=== PATIENT | male | born 1965 | race African-American/Black ===

== ENCOUNTER 2017-04-26 06:42 | Day surgery (SDC) | payer OTHER ==
[2017-04-26] VITALS (12 sets, daily range): BP systolic 135–202; BP diastolic 72–114; PULSE 82–92; RESP 13–25; Ht 188 cm; Wt 101.0 kg
[~2017-04-26] VITALS: Ht 188 cm; Wt 101.0 kg
[~2017-04-26 06:42] MED LIST: CEFAZOLIN 2 GM/50 ML (PMX) 50 ML IVPB SCH; SOD CHLORIDE 0.9% 1,000 ML IV SCH
[2017-04-26] MEDS ORDERED: MTF1000T PO (07:28)
--- NOTE | 2017-04-26 07:31 | RADRPT ---
PROCEDURE: XR Chest. CLINICAL INDICATION: Preoperative TECHNIQUE: Single frontal view of the chest was obtained COMPARISON: None FINDINGS: The heart and mediastinum are within normal limits. The lungs are clear. There is no pleural effusion or pneumothorax. RPTAT: AA IMPRESSION: No acute disease. .Amador Wagner MD, Date Time Electronically viewed and signed by .Amador Wagner MD, on 04/26/2017 07:31 .S/
[2017-04-26] MEDS ORDERED: METF500T4 PO (07:52)
[2017-04-26] MEDS ORDERED: LANT3I SC (07:52)
[2017-04-26 07:59] LABS: BASOPHILS % 0.4 % (0.0-2.0); EOSINOPHILS # 0.1 10^3/ul (0.0-0.5); EOSINOPHILS % 2.2 % (0.0-7.0); HEMATOCRIT 43.8 % (42.0-52.0); LYMPHOCYTES # 2.2 10^3/ul (0.8-2.9); LYMPHOCYTES % 40.2 % (15.0-51.0); MEAN CORPUSCULAR HEMOGLOBIN 30.2 pg (29.0-33.0); MEAN CORPUSCULAR HGB CONC 34.2 g/dl (32.0-37.0); MEAN CORPUSCULAR VOLUME 88.3 fl (82.0-101.0); MEAN PLATELET VOLUME 11.8 fl (7.4-10.4); MONOCYTE # 0.5 10^3/ul (0.3-0.9); MONOCYTES % 8.9 % (0.0-11.0); NEUTROPHIL # 2.6 10^3/ul (1.6-7.5); NEUTROPHILS % 48.1 % (39.0-77.0); PLATELET COUNT 135 10^3/UL (140-415); POSITIVE DIFF @See below; RED BLOOD COUNT 4.96 10^6/ul (4.70-6.10); RED CELL DISTRIBUTION WIDTH 12.3 % (11.5-14.5); WHITE BLOOD COUNT 5.4 10^3/ul (4.8-10.8)
[2017-04-26 08:16] LABS: INR 0.96; PARTIAL THROMBOPLASTIN TIME 26.6 Sec (25.0-35.0); PROTIME 12.8 Sec (12.2-14.2)
[2017-04-26 08:20] LABS: ALBUMIN 4.3 g/dl (3.3-4.9); ALBUMIN/GLOBULIN RATIO 1.38; BILIRUBIN,INDIRECT 0.6 mg/dl (0-1.1); BILIRUBIN,TOTAL 0.6 mg/dl (0.2-1.3); TOTAL PROTEIN 7.4 g/dl (6.1-8.1)
[2017-04-26 08:28] LABS: CALCIUM 9.5 mg/dl (8.4-10.2); CREATININE 0.71 mg/dl (0.61-1.24); POTASSIUM 4.1 mmol/L (3.5-5.1)
[2017-04-26] MEDS ORDERED: INSULIN ASPART [NOVOLOG] 3 ML PEN SC ONE (08:30)
[2017-04-26 08:48] LABS: BASOPHILS % (M) 1 % (0-2); EOSINOPHILS % (M) 2 % (0-7); ERYTHROBLAST% (NRBC) (M) 1 % (0-0); METAMYELOCYTES %M 1 % (0-0); MONOCYTES % (M) 3 % (0-11); PLATELET ESTIMATE NORMAL; REACTIVE LYMPHOCYTES% (M) 1 % (0-0)
[2017-04-26] MEDS ORDERED: BUPIVACAINE 0.25% (MPF) 10 ML 10 ML VIAL ONE (10:45)
[2017-04-26] MEDS ORDERED: GLYCOPYRROLATE 1 MG INJ ONE (10:58)
[2017-04-26] MEDS ORDERED: NEOSTIGMINE 3 MG/3 ML SYRINGE ONE (10:58)
[2017-04-26] MEDS ORDERED: PROPOFOL 20 ML ONE (10:58)
[2017-04-26] MEDS ORDERED: LIDOCAINE 2% (SDV) 5 ML INJ ONE (10:58)
[2017-04-26] MEDS ORDERED: SUCCINYLCHOLINE CHLORIDE 100 MG/5 ML SYG IV ONE (10:58)
[2017-04-26] MEDS ORDERED: ROCURONIUM 50 MG INJ ONE (10:58)
[2017-04-26] MEDS ORDERED: CEFAZOLIN 1 GM INJ ONE (11:17)
[2017-04-26] MEDS ORDERED: BACITRACIN 0.9 GM OINT ONE (11:25)
[2017-04-26] MEDS ORDERED: HYDROCODONE/APAP (5/325) TAB PO ONE (11:30)
--- NOTE | 2017-04-26 11:31 | OPR ---
Date/Time of Note Date/Time of Note DATE: 04/26/17 TIME: 11:28 Operative Report Procedure Date: Apr 26, 2017 Preoperative Diagnosis 1. right upper labium madi mass 2 cm mass 2 cm incision 2. localize adjacent labium madi flaps 2 sq cm defect 3. therapeutic injection of subcutaneous local anesthesia Postoperative Diagnosis same Surgeon see signature line Micro Lab Analyst none Anesthesia Type: general Estimated Blood Loss: 0 - 10 ml's Transfusion none Specimen right upper labium madi mass Grafts/Implants none Complications none Indications This is a 52-year-old male with right upper labium orris mass. He requests surgical excision. Risks alternatives benefits and percent were discussed the patient. Potential complications including but not limited to bleeding infection lip scarring and contracture and deformity and possible need for reoperation were discussed the patient. Patient expressed understanding consents to the operation. Procedure Description Patient is taken to the OR and prepped and draped in usual sterile fashion. Surgical timeout was performed. IV antibiotics given. Elliptical incision is made over the right upper labium auris mass with a 15 blade dissection Carrs carried onto the mass and circumferentially excised. There is good hemostasis. The mass excision did not violate the vermilion border. This remained intact and did not creating deformities. Due to the large tissue defect labial flaps were created and advanced. This was closed in a localized adjacent tissue transfer with these of skin flaps with interrupted 3-0 Vicryl and interrupted 3- 0 nylon. Therapeutic subcutaneous local anesthesia was injected. Bacitracin was applied to the surgical site. Sheri KHAN Apr 26, 2017 11:31
[2017-04-26] MEDS ORDERED: SUGAMMADEX SODIUM 200 MG/2 ML VIAL IV ONE (11:33)
[2017-04-26] MEDS ORDERED: hydrALAzine 20 MG INJ ONE (11:45)
[2017-04-26] MEDS ORDERED: EPHEDrine SULFATE 50 MG/5 ML SYG IV PRN (12:00)
[2017-04-26] MEDS ORDERED: METOCLOPRAMIDE 10 MG INJ IV PRN (12:00)
[2017-04-26] MEDS ORDERED: DIPHENHYDRAMINE 50 MG INJ IV PRN (12:00)
[2017-04-26] MEDS ORDERED: FENTAnyl 50 MCG/ML VIAL IV PRN ×3 (12:00)
[2017-04-26] MEDS ORDERED: LABETALOL HCL 20MG INJ IV PRN (12:00)
[2017-04-26] MEDS ORDERED: hydrALAzine 20 MG INJ IV PRN (12:00)
[2017-04-26] MEDS ORDERED: MIDAZOLAM 1 MG/ML 2 ML INJ IV PRN (12:00)
[2017-04-26] MEDS ORDERED: ONDANSETRON 4 MG INJ IV PRN (12:00)
[2017-04-26] MEDS ORDERED: MEPERIDINE 25 MG INJ IV PRN (12:00)
[2017-04-26] MEDS ORDERED: OXYCODONE/ACETAMINOPHEN (5/325) TAB PO PRN ×2 (12:00)
--- NOTE | 2017-04-26 16:08 | RADRPT ---
Vent Rate: 84 bpm RR Interval: 0 msec [place] Interval: 164 msec QRS Duration: 86 msec QT Interval: 380 msec QTC Interval: 449 msec P-R-T Gerl[place]: 55 - 22 - 52 degrees Normal sinus rhythm Normal ECG Electronically Signed By: Kai Gonzalez [id number]
== END 2017-04-26 13:20 | disposition home or self-care (01) ==
LOC: SDS 06:42
PROVIDERS: ATTEND Surgery
DX: D23.0 Other benign neoplasm of skin of lip (principal); I10 Essential (primary) hypertension; E11.9 Type 2 diabetes mellitus without complications; G47.30 Sleep apnea, unspecified
CPT/HCPCS: 14060; 71010; 80053; 82962; 85025; 85610; 85730; 88307; 93005; J0360; J0690; J1815; J3010; Z7512; Z7610; J2710